=== PATIENT | male | born 1985 | race Two or more races ===

== ENCOUNTER 2025-01-22 07:57 | Outpatient (REF) | payer OTHER, SELFPAY ==
[2025-01-22 09:05] LABS: Anion Gap 11 (12-20); Blood Urea Nitrogen 13 mg/dL (9-16); Calcium 9.4 mg/dL (8.4-10.2); Carbon Dioxide 25 mmol/L (22-29); Chloride 109 mmol/L (96-108); Estimated Glomerular Filt Rate > 60; Glucose Fasting 104 mg/dL (60-99); Potassium 4.3 mmol/L (3.3-5.1); Sodium 141 mmol/L (135-145)
[2025-01-22 09:32] LABS: Erythrocyte Sedimentation Rate 2 MM/HR (0-15)
[2025-01-22 09:39] LABS: Folate 12.9 ng/mL (> or = 4.0); Vitamin B12 396 pg/mL (200-900)
== END 2025-01-22 07:58 | disposition home or self-care (01) ==
LOC: HO.LAB 07:57
PROVIDERS: PCP Internal Medicine; Visit Provider Psychiatry & Neurology Neurology
DX: G04 Encephalitis, myelitis and encephalomyelitis (principal)
CPT/HCPCS: 36415; 80048; 82607; 82746; 85652

== ENCOUNTER 2025-03-16 13:21 | Outpatient (AMB) | payer OTHER, SELFPAY ==
--- NOTE | 2025-03-16 13:30 | A.OFFVIS_ITS ---
Vital Signs 03/16/25 13:35 Height 5 ft 6 in Weight 198 lb 6.656 oz BMI 32.0 BP 111/66 Blood Pressure Location Lt brachial Position Sitting Pulse 76 Intake Visit Reasons: Fatty Liver Intake Note: Luc presents in the office as a new patient for fatty liver. CC: Here to check his liver - no symptoms! Allergies honey Allergy (Mild, Verified 03/16/25 13:36) Unknown HPI Comments Details: 39 y.o [place] gentleman, who is here to establish care for elevated LFTs. Patient reports this is a longstanding issue, and has had workup done in [place] as well, including a liver biopsy in 2019. He was diagnosed with fatty liver disease and prescribed vitamin-E. He is mainly interested in knowing if there has been any progression of liver disease since then. Does not report any abdominal pain, nausea, vomiting, pruritus, abdominal distention. Labs from portal 12/2024: ALT 100 AST 47 ALP 91 T. Bili 0.6 Prev liver biopsy: [facility] 2019 - Marked presence of fat droplets. Mild fibrosis of portal spaces. No significant inflammation. No viral cytopathology. Review of Systems Const All systems reviewed & are unremarkable except as noted in HPI and below Physical Exam Vital Signs: Last Vital Signs Pulse 76 03/16/25 13:35 BP 111/66 03/16/25 13:35 BMI result Body Mass Index 32.0 No apparent distress Nonicteric Abdomen soft, nondistended Alert and oriented x3, normal gait Assessment & Plan Assessment & Plan (1) Elevated LFTs: Code(s): R79.89 - Other specified abnormal findings of blood chemistry Category: Medical (2) Metabolic dysfunction-associated steatohepatitis (MASH): Code(s): K75.81 - Nonalcoholic steatohepatitis (MAE) Category: Medical Plan Reviewed with the patient that will complete workup to rule out other causes. In addition, will also get an elastography to noninvasively assess for underlying fibrosis. Plan: -labs as below -ultrasound elastography -patient counseled on control of metabolic factors -10% total body weight loss in the next 6 months Follow-up in 2 months to review results Orders: Orders Liver Panel Today R79.89 - Other specified abnormal findings of blood chemistry Alpha 1 Anti-trypsin Today R79.89 - Other specified abnormal findings of blood chemistry Alpha Fetoprotein Today R79.89 - Other specified abnormal findings of blood chemistry Ceruloplasmin Today R79.89 - Other specified abnormal findings of blood chemistry Hepatitis A IgG Today R79.89 - Other specified abnormal findings of blood chemistry Hepatitis B Surface Antigen Today R79.89 - Other specified abnormal findings of blood chemistry Hepatitis C Antibody Today R79.89 - Other specified abnormal findings of blood chemistry HIV Ab/Ag Today R79.89 - Other specified abnormal findings of blood chemistry Immunoglobulin A Today R79.89 - Other specified abnormal findings of blood chemistry Mitochondrial Antibody Today R79.89 - Other specified abnormal findings of blood chemistry Phosphatidylethanol, Blood Today R79.89 - Other specified abnormal findings of blood chemistry Smooth Muscle Antibody Today R79.89 - Other specified abnormal findings of blood chemistry Prothrombin Time INR Today R79.89 - Other specified abnormal findings of blood chemistry Transglutaminase IgA Today R79.89 - Other specified abnormal findings of blood chemistry KAREN Reflex Titer and Pattern Today R79.89 - Other specified abnormal findings of blood chemistry Ferritin Today R79.89 - Other specified abnormal findings of blood chemistry Complete Blood Count no Diff Today R79.89 - Other specified abnormal findings of blood chemistry Comprehensive Met. Panel Today R79.89 - Other specified abnormal findings of blood chemistry Hepatitis B Core Antibody Today R79.89 - Other specified abnormal findings of blood chemistry Hepatitis B Surface Antibody Today R79.89 - Other specified abnormal findings of blood chemistry Immunoglobulin G Today R79.89 - Other specified abnormal findings of blood chemistry IRON PROFILE Today R79.89 - Other specified abnormal findings of blood chemistry Liver Kidney Microsomal Ab Today R79.89 - Other specified abnormal findings of blood chemistry TSH reflex Free T4 Today R79.89 - Other specified abnormal findings of blood chemistry US abdomen comp w elastography Today R79.89 - Other specified abnormal findings of blood chemistry Coding Level of Care Code New Pt Level 4 (72345) Diagnoses Elevated LFTs R79. Metabolic dysfunction-associated steatohepatitis (MAS) K75.81
[2025-03-16 13:35] VITALS: BP 111/66; PULSE 76; BMI 32.0
--- OUTSIDE RECORDS SUMMARY | 2025-03-16 14:11 | XMS_ITS | Encounter Summary ---
Author Organization [facility] Address [address] [place] [address] Care Team Providers Care Retail Team Leader Name Role Phone Shakila Hi MD Primary Care Provider [phone]- [phone] Encounter Details Date Type Department Care Team (Late Contact Info) Description 09/14/2024 Nurse Triage Adult Medicine [address] [phone] Shakila Hi MD [address] [place] [id number] Social History Tobacco Use Types Packs/Day Years Used Date Smoking Tobacco: Never Sex and Gender Information Value Date Recorded Sex Assigned at Not on file Legal Sex Male 11:01 AM EDT Gender Identity Not on file Sexual Orientation Not on file documented as of this encounter Plan of Treatment Upcoming Encounters Date Type Department Care Team (Late st Contact Info) Description 03/22/2025 9:30 AM EDT Office Visit Adult Medicine [address] [phone] Jena Cherry PA [address] [place] [address] [phone] documented as of this encounter Visit Diagnoses Not on filedocumented in this encounter Care Teams Retail Team Leader Relationship Specialty Start Date End Date Shakila Hi MD [address] [place] [id number] PCP - General 08/01/23 documented as of this encounter
--- OUTSIDE RECORDS SUMMARY | 2025-03-16 14:11 | XMS_ITS | Clinical Summary ---
Author Organization [facility] Address [address] [place] [address] Care Team Providers Care Supervisor Wrapping Room Name Role Phone Unavailable Primary Care Provider Unavailabl e Source Comments PLEASE NOTE, if this patient is a minor, it may be UNLAWFUL to discuss sensitive information that is contained in these records (such as FAMILY PLANNING, MENTAL HEALTH or SUBSTANCE ABUSE) with the minor patient's parent or other person without the patient's specific authorization.[facility] Encounters Date Type Department Care Team Description 03/08/2025 4:00 PM EDT Office Visit [address] [phone] 02/05/2025 9:00 AM EDT Office Visit [address] [phone] Aydin Martinez DDS 01/01/2025 12:20 PM EDT Office Visit [address] [phone] Aydin Martinez DDS from Last 3 Months Social History Tobacco Use Types Packs/Day Years Used Date Smoking Tobacco: Never Assessed Sex and Gender Information Value Date Recorded Sex Assigned at Not on file Legal Sex Male 9:05 AM PDT Gender Identity Not on file Sexual Orientation Not on file Last Filed Vital Signs Vital Sign Reading Time Taken Comments Blood Pressure 126/79 02/05/2025 9:19 AM EDT Pulse 73 02/05/2025 9:19 AM EDT Temperature - - Respiratory Rate - - Oxygen Saturation - - Inhaled Oxygen Concentration - - Weight - - Height - - Body Mass Index - - Plan of Treatment Upcoming Encounters Date Type Department Care Team (Late st Contact Info) Description 04/14/2025 4:20 PM EDT Office Visit [address] [phone] Aydin Martinez, DDS [address] [place] [address] Health Maintenance Due Date Last Done Comments Anxiety Screening 1987 Hepatitis C Screening 1987 Tobacco Screening 1987 HIV Screening 2002 Imm-DTaP/Tdap/Td (1 - Tdap) 2006 Imm-Hepatitis B (1 of 3 - 19+ 3-dose series) [id number] ( - season) 2024 Alcohol and Drug Screen 09/08/2024 Depression Annual Screen 09/08/2024 Imm-Influenza (#1) 2025 Dental BW 03/10/2026 03/08/2025 Dental Examination 03/10/2026 03/08/2025 Dental Perio Charting 03/10/2026 03/08/2025 Dental Prophy 03/10/2026 03/08/2025 Diabetes Screening 10/20/2026 10/20/2023 Hypertension Screening (#1) 02/05/2028 Dental FMX/Pano 03/10/2030 03/08/2025 Procedures Procedure Name Priority Date/Time Associated Diagnosis Comments DENTAL CASE MANAGEMENT - MOTIVATIONAL INTV Routine 03/08/2025 4:00 PM EDT Caries of enamel (incipient) Caries PROPHYLAXIS - ADULT Routine 03/08/2025 4 :00 PM EDT Caries of enamel (incipient) Caries INTRAORAL - COMP SERIES OF RADIOGRAPHIC IMAGES Routine 03/08/2025 4:00 PM EDT Caries of enamel (incipient) Caries COMP ORAL EVALUATION - NEW/ESTABLISHED PATIENT Routine 03/08/2025 4:00 PM EDT Caries of enamel (incipient) Caries CARIES RISK ASSESSMENT & DOC FINDING HIGH RISK Routine 03/08/2025 4:00 PM EDT Caries of enamel (incipient) Caries NUTRITIONAL COUNSELING CONTROL OF DENTAL DISEASE Routine 03/08/2025 4:00 PM EDT Caries of enamel (incipient) Caries ORAL HYGIENE INSTRUCTIONS Routine 2024 4:00 PM EDT Caries of enamel (incipient) Caries ORAL CANCER SCREENING Routine 03/08/2025 4:00 PM EDT Caries of enamel (incipient) Caries CASE PRESENTATION SUBS DTL & EXTENSIVE TX PLN Routine 03/08/2025 4:00 PM EDT Caries of enamel (incipient) 5 MOD COMPOSITE - WISDOM (NON BILLABLE) Routine 03/08/2025 12:00 AM EDT 20 DO COMPOSITE - WISDOM (NON BILLABLE) Routine 03/08/2025 12:00 AM EDT 15 MO AMALGAM - WISDOM (NON BILLABLE) Routine 03/08/2025 12:00 AM EDT 18 MOL AMALGAM - WISDOM (NON BILLABLE) Routine 03/08/2025 12:00 AM EDT 12 CROWN - PORCELAIN FUSED PREDOMINANTLY BASE METAL Routine 03/08/2025 12:00 AM EDT 13 CROWN - PORCELAIN FUSED PREDOMINANTLY BASE METAL Routine 03/08/2025 12:00 AM EDT 14 CROWN - PORCELAIN FUSED PREDOMINANTLY BASE METAL Routine 03/08/2025 12:00 AM EDT 19 CROWN - PORCELAIN FUSED PREDOMINANTLY BASE METAL Routine 03/08/2025 12:00 AM EDT 18 ROOT CANAL - WISDOM (NO BILLABLE) Routine 03/08/2025 12:00 AM EDT 19 ROOT CANAL - WISDOM (NO BILLABLE) Routine 03/08/2025 12:00 AM EDT 14 ROOT CANAL - WISDOM (NO BILLABLE) Routine 03/08/2025 12:00 AM EDT 13 ROOT CANAL - WISDOM (NO BILLABLE) Routine 03/08/2025 12:00 AM EDT 12 ROOT CANAL - WISDOM (NO BILLABLE) Routine 03/08/2025 12:00 AM EDT 31 MO RESIN-BASED COMPOSITE - TWO SURFACES POSTERIOR Routine 02/05/2025 9:00 AM EDT Defective dental methodist INTRAORAL - PERIAPICAL FIRST RADIOGRAPHIC IMAGE Routine 01/01/2025 12:20 PM EDT Defective dental methodist BITEWING - SINGLE RADIOGRAPHIC IMAGE Routine 01/01/2025 12:20 PM EDT Defective dental methodist LIMITED ORAL EVALUATION - PROBLEM FOCUSED Routine 01/01/2025 12:20 PM EDT Defective dental methodist 2 O AMALGAM - WISDOM (NON BILLABLE) Routine 01/01/2025 12:00 AM EDT 3 MO COMPOSITE - WISDOM (NON BILLABLE) Routine 01/01/2025 12:00 AM EDT 4 ROOT CANAL - WISDOM (NO BILLABLE) Routine 01/01/2025 12:00 AM EDT 4 CROWN - PORCELAIN FUSED PREDOMINANTLY BASE METAL Routine 01/01/2025 12:00 AM EDT 29 CROWN - PORCELAIN FUSED PREDOMINANTLY BASE METAL Routine 01/01/2025 12:00 AM EDT 30 CROWN - PORCELAIN FUSED PREDOMINANTLY BASE METAL Routine 01/01/2025 12:00 AM EDT 29 ROOT CANAL - WISDOM (NO BILLABLE) Routine 01/01/2025 12:00 AM EDT 30 ROOT CANAL - WISDOM (NO BILLABLE) Routine 01/01/2025 12:00 AM EDT from Last 3 Months [facility] MEDICAID DENTAL [facility] [place] [address]
== END 2025-03-16 14:06 | disposition home or self-care (01) ==
LOC: HO.HGI 13:21
PROVIDERS: PCP Internal Medicine; Visit Provider Internal Medicine
DX: R79.89 Other specified abnormal findings of blood chemistry (principal); K75.81 Nonalcoholic steatohepatitis (NASH)
CPT/HCPCS: 99204

== ENCOUNTER 2025-03-16 14:16 | Outpatient (REF) | payer OTHER, SELFPAY ==
[2025-03-16 15:11] LABS: Hematocrit 42.1 % (42.0-52.0); Hemoglobin 14.6 g/dl (14.0-18.0); Mean Corpuscular HGB Conc 34.7 g/dl (31.0-36.0); Mean Corpuscular Hemoglobin 27.7 pg (27.0-33.0); Mean Corpuscular Volume 79.9 fL (80.0-98.0); NRBC Abs Auto 0.000 X10*3/uL (0.0-0.012); NRBC Pct Auto 0.0 /100WBC (0.0-0.2); Platelet Count 144 X10*3/uL (160-400); Red Blood Count 5.27 X10*6/uL (4.60-5.80); White Blood Count 5.1 X10*3/uL (4.8-10.8)
[2025-03-16 15:23] LABS: INTERNATIONAL NORM RATIO 1.0 (0.9-1.1); Prothrombin Time 11.7 SEC (10.9-12.4)
[2025-03-16 15:40] LABS: Alanine Aminotransferase 85 U/L (0-40); Albumin Level 4.9 g/dL (3.5-5.0); Alkaline Phosphatase 78 U/L (39-117); Anion Gap 11 (12-20); Aspartate Amino Transferase 42 U/L (5-37); Blood Urea Nitrogen 11 mg/dL (9-16); Calcium 9.6 mg/dL (8.4-10.2); Carbon Dioxide 25 mmol/L (22-29); Chloride 108 mmol/L (96-108); Estimated Glomerular Filt Rate > 60; Iron 87 mcg/dL (45-160); Percent Iron Saturation 25 % (15-50); Potassium 4.0 mmol/L (3.3-5.1); Sodium 140 mmol/L (135-145); Total Iron Binding Capacity 350 mcg/dL (228-428); Total Protein 7.1 g/dL (6.5-8.0); Unsaturated Iron Binding 263 ug/dL
[2025-03-16 15:54] LABS: Ferritin 49 ng/mL (20-250)
[2025-03-17 06:34] LABS: HBS Num1 0.05 mIU/mL (0-7.99); HBc Num1 0.05 S/CO (0.00-0.79); HBsAGNum1 0.33 S/CO (0.00-0.99); HIV Num 1 0.06 S/CO (0.00-0.99); Hepatitis B Surface Antigen Negative (Negative); ~HepC Num1 0.13 S/CO (0.00-0.79); ~Hepatitis B Surface Antibody NONREACTIVE (Nonreactive); ~Hepatitis C Antibody Nonreactive (Nonreactive)
[2025-03-18 08:12] LABS: ~Hepatitis A Antibody IgG 10.62 S/CO (0.00-0.99)
[2025-03-18 08:53] LABS: Immunoglobulin A 98 mg/dL (47-310); Immunoglobulin G 790 mg/dL (600-1640)
[2025-03-18 12:08] LABS: Anti Nuclear Antibody Screen NEGATIVE (NEGATIVE)
[2025-03-21 12:57] LABS: Phosphatidylethanol 16:0-18:1 NEGATIVE
[2025-03-21 12:58] LABS: Phosphatidylethanol 16:0-18:2 NEGATIVE
[2025-03-23 11:34] LABS: Liver Kidney Microsomal Ab <=20.0 U (<=20.0)
== END 2025-03-16 14:17 | disposition home or self-care (01) ==
LOC: HO.LAB 14:16
PROVIDERS: PCP Internal Medicine; Visit Provider Internal Medicine
DX: R79.89 Other specified abnormal findings of blood chemistry (principal); K75.81 Nonalcoholic steatohepatitis (NASH)
CPT/HCPCS: 36415; 80053; 80321; 82103; 82105; 82248; 82390; 82728; 82784; 83540; 84443; 85027; 85610; 86015; 86038; 86364; 86376; 86381; 86704; 86706; 86708; 86803; 87340; 87389; 99202

== ENCOUNTER 2025-04-29 12:37 | Outpatient (REF) | payer OTHER, SELFPAY ==
--- NOTE | ~2025-04-29 | US_ITS ---
EXAMINATION: US COMPLETE ABDOMEN WITH LIVER ELASTOGRAPHY CLINICAL INFORMATION: Elevated transaminases. COMPARISON: None available. TECHNIQUE: Real-time imaging of the abdominal viscera. Noninvasive ultrasound liver fibrosis assessment is performed using Chance ElastPQ point quantification shear wave elastography (pSWE) with a C5-2 MHz transducer. Multiple elastography samples are obtained. FINDINGS: PANCREAS: The visualized pancreatic head and visualized portions of the body are normal in appearance. The remainder of the pancreas is obscured from visualization by the overlying bowel gas. ABDOMINAL AORTA: No aortic aneurysm is seen. INFERIOR VENA CAVA: Visualized portions are normal. LIVER: Liver is diffusely echogenic. The right lobe measures 15 cm in length. The left lobe measures 10 cm in length. The main portal vein is patent with a normal direction of flow and a continuously forward venous waveform. Shear wave liver elastography median stiffness is 1.9 m/s (reference: normal median stiffness is 1.3 m/s or less). IQR/median stiffness to assess sampling precision is 0.05 (reference: good quality data set is IQR/median stiffness of 0.15 or less). GALLBLADDER: The gallbladder is physiologically distended without evidence of stones, sludge, polyps, wall thickening or pericholecystic fluid. COMMON BILE DUCT: Normal in caliber measuring 0.3 cm in diameter. RIGHT KIDNEY: No hydronephrosis. No renal calculi or focal parenchymal lesions. The kidney measures 12 cm in maximum dimension. LEFT KIDNEY: No hydronephrosis. No renal calculi or focal parenchymal lesions. The kidney measures 12 cm in maximum dimension. SPLEEN: Unremarkable. The spleen measures 13.9 cm in maximum dimension. FREE FLUID: None seen. US/US abdomen comp w elastography IMPRESSION: 1. Diffusely echogenic liver is consistent with fatty changes versus diffuse hepatocellular disease. 2. Liver elastography: Measurements are suggestive of compensated advanced chroniic liver disease but need further test for confirmation. Borderline splenomegaly. REFERENCE: Society of Radiologists in Ultrasound Liver Stiffness Thresholds (2020): LIVER STIFFNESS THRESHOLDS: *Liver Stiffness equal or less than 1.3 m/s: High probability of being normal. *Liver Stiffness less than 1.7 m/s: In the absence of other known clinical signs, rules out compensated advanced chronic liver disease. *Liver Stiffness 1.7-2.1 m/s: Suggestive of compensated advanced chronic liver disease but need further test for confirmation. *Liver Stiffness over 2.1 m/s: Rules in compensated advanced chronic liver disease. *Liver Stiffness over 2.4 m/s: Suggestive of clinically significant portal hypertension. QUALITY OF DATA SET: *IQR/Median value equal or less than 0.15 implies a quality data set. *IQR/Median value over 0.15 implies a poor quality data set. SIGNIFICANT CHANGE FROM PRIOR EXAM: Significant change if liver stiffness measurement is 10% or greater from prior exam. OTHER CONSIDERATIONS: The stage of liver fibrosis may be overestimated in the setting of acute hepatitis, liver inflammation, elevated liver function tests, hepatic vascular congestion, obstructive cholestasis, non-fasting state, and infiltrative diseases such as amyloidosis and lymphoma. In some patients with NAFLD, the liver stiffness thresholds for compensated advanced chronic liver disease may be lower. In causes other than viral hepatitis and NAFLD, liver stiffness thresholds are not well established. Electronically signed by: Franko Wadsworth MD 04/29/2025 01:21 PM EDT
--- OUTSIDE RECORDS SUMMARY | 2025-04-29 12:39 | XMS_ITS | Clinical Summary ---
Author Organization [facility] Address [address] [place] [address] Care Team Providers Care Software Developer Consultant Name Role Phone Unavailable Primary Care Provider Unavailabl e Source Comments PLEASE NOTE, if this patient is a minor, it may be UNLAWFUL to discuss sensitive information that is contained in these records (such as FAMILY PLANNING, MENTAL HEALTH or SUBSTANCE ABUSE) with the minor patient's parent or other person without the patient's specific authorization.[facility] Medications No known medications Active Problems No known active problems Encounters Date Type Department Care Team Description 04/23/2025 10:40 AM EDT Office Visit [address] [phone] Ashlee Nuñez DDS 04/14/2025 4:20 PM EDT Office Visit [address] [phone] Aydin Martinez DDS 03/08/2025 4:00 PM EDT Office Visit [address] [phone] Gopi Reese Shelley 02/05/2025 9:00 AM EDT Office Visit [address] [phone] Aydin Martinez DDS from Last 3 Months Social History Tobacco Use Types Packs/Day Years Used Date Smoking Tobacco: Never Assessed Sex and Gender Information Value Date Recorded Sex Assigned at Not on file Legal Sex Male 9:05 AM PDT Gender Identity Not on file Sexual Orientation Not on file Last Filed Vital Signs Vital Sign Reading Time Taken Comments Blood Pressure 150/88 04/23/2025 10:41 AM EDT Pulse 81 04/23/2025 10:41 AM EDT Temperature - - Respiratory Rate - - Oxygen Saturation - - Inhaled Oxygen Concentration - - Weight - - Height - - Body Mass Index - - Plan of Treatment Upcoming Encounters Date Type Department Care Team (Late st Contact Info) Description 05/27/2025 4:20 PM EDT Office Visit [facility] [address] [place] [phone] Aydin Martinez, DDS [address] [place] [address] 05/30/2025 4:20 PM EDT Office Visit [facility] [address] [place] [phone] Leslie Ulloa, DMD [address] [place] [address] Health Maintenance Due Date Last Done Comments Anxiety Screening 1987 Tobacco Screening 1987 HIV Screening 2002 Imm-DTaP/Tdap/Td (1 - Tdap) 2006 Imm-Hepatitis B (1 of 3 - 19 + 3-dose series) 2006 [id number] ( - season) 2024 Alcohol and Drug Screen 09/08/2024 Depression Annual Screen 09/08/2024 Imm-Influenza (#1) 2025 Dental BW 03/10/2026 03/08/2025 Dental Examination 03/10/2026 03/08/2025 Dental Perio Charting 03/10/2026 03/08/2025 Dental Prophy 03/10/2026 03/08/2025 Diabetes Screening 03/23/2026 03/23/2025, 0 03/23/2025, 03/23/2025, Additional history exists Hypertension Screening (#1) 04/23/2026 Dental FMX/Pano 03/10/2030 03/08/2025 Hepatitis C Screening Completed 03/23/2025 Procedures Procedure Name Priority Date/Time Associated Diagnosis Comments OFFICE VISIT OBSERVATION NO OTHER SRVC PERFORMED Routine 04/23/2025 10:40 AM EDT Encounter for dental examination 20 DO RESIN-BASED COMPOSITE - TWO SURFACES POSTERIOR Routine 04/14/2025 4:20 PM EDT Caries Defective dental amish DENTAL CASE MANAGEMENT - MOTIVATIONAL INTV Routine [...] Routine 02/05/2025 9:00 AM EDT Defective dental amish from Last 3 Months Insurance [place] MEDICAID DENTAL [facility] [place] [id number]
--- OUTSIDE RECORDS SUMMARY | 2025-04-29 12:39 | XMS_ITS | Encounter Summary ---
Author Organization [facility] Address [address] [place] [address] Care Team Providers Care Tool Dresser Name Role Phone Shakila Hi MD Primary Care Provider [phone]- [phone] Encounter Details Date Type Department Care Team (Late st Contact Info) Description 09/14/2024 Nurse Triage Adult Medicine [address] [phone] Shakila Hi MD [address] [place] [id number] Social History Tobacco Use Types Packs/Day Years Used Date Smoking Tobacco: Never Sex and Gender Information Value Date Recorded Sex Assigned at Not on file Legal Sex Male 11:01 AM EDT Gender Identity Not on file Sexual Orientation Not on file documented as of this encounter Plan of Treatment Upcoming Encounters Date Type Department Care Team (Late st Contact Info) Description 07/08/2025 7:45 AM EDT Office Visit Adult Medicine [address] [phone] Shakila Hi MD [address] [place] documented as of this encounter Visit Diagnoses Not on filedocumented in this encounter Care Teams Tool Dresser Relationship Specialty Start Date End Date Shakila Hi MD [address] [place], [place] [address] [address] PCP - General 08/01/23 documented as of this encounter
== END 2025-04-29 12:38 | disposition home or self-care (01) ==
LOC: HO.US 12:37
PROVIDERS: PCP Internal Medicine; Visit Provider Internal Medicine
DX: R79.89 Other specified abnormal findings of blood chemistry (principal)
CPT/HCPCS: 76700; 76981

== ENCOUNTER → 2025-04-29 12:39 | Outpatient (BNV) | payer OTHER, SELFPAY | PROVIDERS: PCP Internal Medicine; Visit Provider Radiology Diagnostic Radiology | DX: R74.01 Elevation of levels of liver transaminase levels (principal) | CPT/HCPCS: 76700 ==

== ENCOUNTER 2025-05-18 14:16 | Outpatient (AMB) | payer OTHER, SELFPAY ==
--- NOTE | 2025-05-18 14:42 | MHC.OFFVIS ---
Vital Signs 05/18/25 14:43 Height 5 ft 6 in Weight 198 lb 6.656 oz BMI 32.0 BP 111/71 Blood Pressure Location Lt brachial Position Sitting Pulse 83 Intake Visit Reasons: 2m Intake Note: Luc presents in the office as a 2 month follow up. CC: He states he is not having GI concerns today. Small Products Ii Assembler Required: No Allergies honey Allergy (Mild, Verified 05/18/25 14:44) Unknown HPI Comments Details: 39 y.o Belgian gentleman, who is here to establish care for elevated LFTs. Patient reports this is a longstanding issue, and has had workup done in [place] as well, including a liver biopsy in 2019. He was diagnosed with fatty liver disease and prescribed vitamin-E. He is mainly interested in knowing if there has been any progression of liver disease since then. Does not report any abdominal pain, nausea, vomiting, pruritus, abdominal distention. Labs from [place] 12/2024: ALT 100 AST 47 ALP 91 T. Bili 0.6 Prev liver biopsy: [facility] 2019 - Marked presence of fat droplets. Mild fibrosis of portal spaces. No significant inflammation. No viral cytopathology. 05/18/25: here for follow up. Reports no acute GI issues. Labs and US reviewed. Elastography in hanson zone with splenomegaly. Reviewed that indicates at least advanced fibrosis. Strong counseling done for modification of diet and lifestyle. Pt does not drink. BMI 32. Exercise 1-2 times a week. 1. Diffusely echogenic liver is consistent with fatty changes versus diffuse hepatocellular disease. 2. Liver elastography: Measurements are suggestive of compensated advanced chroniic liver disease but need further test for confirmation. 3. Borderline splenomegaly. Physical Exam Exam Exam: No apparent distress Nonicteric Abdomen soft, nondistended Alert and oriented x3, normal gait Vital Signs: Last Vital Signs Pulse 83 05/18/25 14:43 BP 111/71 05/18/25 14:43 BMI result Body Mass Index 32.0 Assessment & Plan Assessment & Plan (1) Obesity with serious comorbidity: Code(s): E66.9 - Obesity, unspecified Category: Medical (2) Elevated LFTs: Code(s): R79.89 - Other specified abnormal findings of blood chemistry Category: Medical (3) Metabolic dysfunction-associated steatohepatitis (MASH): Code(s): K75.81 - Nonalcoholic steatohepatitis (MAE) Category: Medical Plan Pt with obesity that has led to MASH and MAFLD with at least advanced fibrosis. Will advocate for GLP-1A to help with weight loss and obesity (BMI 32) related non cirrhotic MAE with moderate to advanced fibrosis to avoid progression to cirrhosis in this 39 y.o. Plan: - Labs as below - Start semaglutide 0.25 mg qweekly, increase to 0.5 mg after 4 weeks. Target dose will be at least 1.7mg, ideally 2.4 mg. - High protein diet - 150 mins of mod intensity exercise per week. - Avoid fatty foods, red meat in moderation, zero etOH Follow up 6 months Orders: Orders Hemoglobin A1c Today K75.81 - Nonalcoholic steatohepatitis (MAE), R79.89 - Other specified abnormal findings of blood chemistry Lipid Panel Today K75.81 - Nonalcoholic steatohepatitis (MAE), R79.89 - Other specified abnormal findings of blood chemistry Medications: New semaglutide 0.25 mg (0.05 mL) subcut QWEEK 0.2 mL 0RF fatty liver 4 weeks E66.9 - Obesity, unspecified Coding Level of Care Code Est Pt Level 4 (01453) Diagnoses Obesity with serious comorbidity E66.9 Elevated LFTs R79.89 Metabolic dysfunction-associated steatohepatitis (MASH) K75.81
[2025-05-18 14:43] VITALS: BP 111/71; PULSE 83; BMI 32.0
--- OUTSIDE RECORDS SUMMARY | 2025-05-18 17:34 | XMS_ITS | Encounter Summary ---
Author Organization [facility] Address [address] [place] [address] Care Team Providers Care Rubber Tile Floor Layer Name Role Phone Shakila Hi MD Primary Care Provider +1- [phone] Encounter Details Date Type Department Care Team (Late st Contact Info) Description 09/14/2024 Nurse Triage Adult Medicine [address] [phone] Shakila Hi MD [address] [place] [address] Social History Tobacco Use Types Packs/Day Years [...] 7:45 AM EDT Office Visit Adult Medicine [address] [phone] Shakila Hi MD [address] [place] documented as of this encounter Visit Diagnoses Not on filedocumented in this encounter Care Teams Rubber Tile Floor Layer Relationship Specialty Start Date End Date Shakila Hi MD [address] [place], [place] [address] [address] PCP - General 08/01/23 documented as of this encounter
--- OUTSIDE RECORDS SUMMARY | 2025-05-18 17:34 | XMS_ITS | Clinical Summary ---
Author Organization [facility] [address] [place] [address] [place] [address] Phone Care Team Providers Care Customer Account Coordinator Name Role Phone Shakila Hi MD Primary Care Provider Allergies Active Allergy Reactions Criticality Noted Date Comments Honey 10/09/2023 Medications cholecalciferol (Vitamin D3) 50 mcg (2,000 unit) capsule Take 1 capsule (2,000 Units total) by mouth 1 (one) time each day. 90 capsule 1 03/25/2025 Active Active Problems Problem Noted Date Diagnosed Date Obesity (BMI 30-39.9) 11/27/2023 Fatty liver 11/27/2023 Erectile dysfunction 11/27/2023 Abnormal liver ultrasound 11/27/2023 Depression 10/09/2023 Encounters Date Type Department Care Team Description 03/22/2025 9:30 AM EDT Office Visit Adult Medicine [address] [phone] Jena Cherry PA Adult general medical examination (Primary Dx); Muscle spasms of lower extremity; Snoring; Obesity (BMI 30-39.9); Chronic fatigue; Fatty liver; Vitamin D deficiency from Last 3 Months Medical History Medical History Date Comments History of encephalitis DX:Histo ry of encephalitis Social History Tobacco Use Types Packs/Day Years Used Date Smoking Tobacco: Never Tobacco Cessation:Counseling Given: Not Answered Sex and Gender Information Value Date Recorded Sex Assigned at Not on file Legal Sex Male 11:01 AM EDT Gender Identity Not on file Sexual Orientation Not on file Obstetrics History Last Filed Vital Signs Vital Sign Reading Time Taken Comments Blood Pressure 120/83 03/22/2025 9:09 AM EDT Pulse 88 03/22/2025 9:09 AM EDT Temperature 36.8 C (98.2 F) 03/22/2025 9:09 AM EDT Respiratory Rate 12 09/15/2024 10:19 AM EST Oxygen Saturation - - Inhaled Oxygen Concentration - - Weight 90.7 kg (200 lb) 03/22/2025 9:09 AM EDT Height 170.2 cm (5' 7 ) 03/22/2025 9:09 AM EDT Body Mass Index 31.32 03/22/2025 9:09 AM EDT Plan of Treatment Upcoming Encounters Date Type Department Care Team (Late st Contact Info) Description 07/08/2025 7:45 AM EDT Office Visit Adult Medicine [facility] [address] [place] [address] Shakila Hi MD [address] [place] [address] Health Maintenance Due Date Last Done Comments Social Influencers of Health Screening 03/29/2024 Depression Screening 09/08/2024 10/09/2023 COVID-19 Vaccine ( - 2023-2 5 season) 2025 Influenza Vaccine (#1) 2025 Cholesterol Screening (Lipid Panel) 03/23/2030 03/23/2025, 10/20/2023, 10/20/2023 Hepatitis C Screening Completed 03/23/2025 , 12/02/2023 DTaP,Tdap,and Td Vaccines Discontinued HIB Vaccines Aged Out No longer eligi ble based on patient's age to complete this topic HIV Screening Discontinued HPV Vaccines Aged Out No longer eligi ble based on patient's age to complete this topic Hepatitis A Vaccines Aged Out No long er eligible based on patient's age to complete this topic Hepatitis B Vaccines Discontinued IPV Vaccines Aged Out No longer eligi ble based on patient's age to complete this topic MMR Vaccines Aged Out No longer eligi ble based on patient's age to complete this topic Meningococcal ACWY Vaccine Aged Out N o longer eligible based on patient's age to complete this topic Meningococcal B Vaccine Aged Out No l onger eligible based on patient's age to complete this topic Pneumococcal Vaccine: Pediatrics (0 to 5 Years) and At-Risk Patients (6 to 49 Years) Discontinued RSV Immunization Patients Under 20 months Aged Out No longer eligible based on patient's age to complete this topic Varicella Vaccines Aged Out No longer eligible based on patient's age to complete this topic Procedures Procedure Name Priority Date/Time Associated Diagnosis Comments BILIRUBIN DUPLICATE PROCEDURE TO ORDER Routine 03/23/2025 7:59 AM EDT Elevated liver enzymes CBC WITH AUTO DIFFERENTIAL Routine 03/23/2025 7:59 AM EDT Adult general medical examination Muscle spasms of lower extremity Snoring HEPATITIS PANEL, ACUTE WITH REFLEX TO CONFIRMATION Routine 03/23/2025 7:59 AM EDT Elevated liver enzymes HEMOGLOBIN A1C Routine 03/23/2025 7:59 AM EDT Adult general medical examination Muscle spasms of lower extremity Snoring CBC AND DIFFERENTIAL Routine 03/23/2025 7:59 AM EDT Adult general medical examination Muscle spasms of lower extremity Snoring COMPREHENSIVE METABOLIC PANEL Routine 03/23/2025 7:59 AM EDT Adult general medical examination Muscle spasms of lower extremity Snoring MAGNESIUM Routine 03/23/2025 7:59 AM EDT Adult general medical examination Muscle spasms of lower extremity Snoring THYROID STIMULATING HORMONE WITH REFLEX TO FREE T4 AND FREE T3 Routine 03/23/2025 7:59 AM EDT Adult general medical examination Muscle spasms of lower extremity Snoring VITAMIN D 25 HYDROXY Routine 03/23/2025 7:59 AM EDT Adult general medical examination Muscle spasms of lower extremity Snoring VITAMIN B12 Routine 03/23/2025 7:59 AM EDT Adult general medical examination Muscle spasms of lower extremity Snoring LIPID PANEL WITH REFLEX TO DIRECT LDL Routine 03/23/2025 7:59 AM EDT Adult general medical examination Muscle spasms of lower extremity Snoring IRON AND TIBC Routine 03/23/2025 7:59 AM EDT Adult general medical examination Muscle spasms of lower extremity Snoring DEPRESSION SCREENING Routine 10/09/2023 from Last 3 Months or Most Recently Relevant to Health Maintenance Results * Bilirubin duplicate procedure to order (03/23/2025 7:59 AM EDT) Total Bilirubin 1.1 0.0 - 1.4 mg/dL LAB CHEMISTRY METHOD 03/23/2025 11:12 AM EDT [facility] Bilirubin, Direct 0.2 0.0 - 0.3 mg/dL LAB CHEMISTRY METHOD 03/23/2025 11:12 AM EDT [facility] Bilirubin, Indirect 0.9 0.0 - 1.1 mg/dL LAB CHEMISTRY METHOD 03/23/2025 11:12 AM EDT [facility] Blood Venous blood specimen / Unknown Venipuncture / Unknown 03/23/2025 7:59 AM EDT 03/23/2025 7:59 AM EDT us Shakila Hi MD LAB BLOOD ORDERABLES Final Result [facility] [address] [place] [address], [place] [phone] * Thyroid stimulating hormone with reflex to free t4 and free t3 (03/23/2025 7:59 AM EDT) TSH 1.76 0.40 - 4.00 mcIU/mL LAB CHEMISTRY METHOD 03/23/2025 12:37 PM EDT [facility] Blood Venous blood specimen / Unknown Venipuncture / Unknown 03/23/2025 7:59 AM EDT 03/23/2025 7:59 AM EDT Jena LOUIS LAB BLOOD ORDERABLES Fin al Result [facility] [address] [place] [address], [place] [phone] * (ABNORMAL) Lipid panel with reflex to direct LDL (03/23/2025 7:59 AM EDT) [facility] Cholesterol 140 0 - 200 mg/dL LAB CHEMISTRY METHOD 03/23/2025 11:07 AM EDT [facility] Triglycerides 128 0 - 150 mg/dL LAB CHEMISTRY METHOD 03/23/2025 11:07 AM EDT [facility] HDL 25(L) >=40 mg/dL LAB CHEMISTRY METHOD 03/23/2025 11:07 AM EDT [facility] LDL Calculated 89 0 - 100 mg/dL LAB CHEMISTRY METHOD 03/23/2025 11:07 AM EDT [facility] VLDL Cholesterol Pierre 25.6 mg/dL LAB CHEMISTRY METHOD 03/23/2025 11:07 AM EDT [facility] Non HDL Chol. (LDL+VLDL) 115 <145 mg/dL LAB CHEMISTRY METHOD 03/23/2025 11:07 AM EDT [facility] Chol/HDL Ratio 5.6(H) 0.0 - 4.4 LAB CHEMISTRY METHOD 03/23/2025 11:07 AM EDT [facility] Blood Venous blood specimen / Unknown Venipuncture / Unknown 03/23/2025 7:59 AM EDT 03/23/2025 7:59 AM EDT Jena LOUIS LAB BLOOD ORDERABLES Fin al Result [facility] [address] [place] [address], [place] [phone] * Hepatitis panel, acute with reflex to confirmation (03/23/2025 7:59 AM EDT) [facility] Hepatitis B Surface Ag Negative Negative LAB CHEMISTRY METHOD 03/23/2025 2:35 PM EDT [facility] Hepatitis A Antibody IgM Negative Negative LAB CHEMISTRY METHOD 03/23/2025 2:35 PM EDT [facility] Hep B Core IgM Negative Negative LAB CHEMISTRY METHOD 03/23/2025 2:35 PM EDT [facility] Hepatitis C Antibody Negative Negative LAB CHEMISTRY METHOD 03/23/2025 2:35 PM EDT [facility] Blood Venous blood specimen / Unknown Venipuncture / Unknown 03/23/2025 7:59 AM EDT 03/23/2025 7:59 AM EDT Shakila Hi MD LAB BLOOD ORDERABLES Final Result [facility] [address] [place] [address], [place] [phone] * CBC auto differential (03/23/2025 7:59 AM EDT) [facility] WBC 5.3 4.8 - 10.8 K/mcL LAB HEMETOLOGY METHOD 03/23/2025 11:08 AM EDT [facility] RBC 5.40 4.50 - 5.50 M/mcL LAB HEMETOLOGY METHOD 03/23/2025 11:08 AM EDT [facility] Hemoglobin 15.1 13.5 - 17.5 g/dL LAB HEMETOLOGY METHOD 03/23/2025 11:08 AM EDT [facility] Hematocrit 45.2 42.0 - 54.0 % LAB HEMETOLOGY METHOD 03/23/2025 11:08 AM EDT [facility] MCV 83.2 79.0 - 98.0 FL LAB HEMETOLOGY METHOD 03/23/2025 11:08 AM [facility] MCH 27.8 27.0 - 32.0 pcg LAB HEMETOLOGY METHOD 03/23/2025 11:08 AM [facility] MCHC 33.4 32.0 - 37.0 g/dL LAB HEMETOLOGY METHOD 03/23/2025 11:08 AM [facility] RDW 12.9 11.0 - 15.0 % LAB HEMETOLOGY METHOD 03/23/2025 11:08 AM [facility] Platelets 161 130 - 400 K/mcL LAB HEMETOLOGY METHOD 03/23/2025 11:08 AM [facility] MPV 10.1 7.0 - 11.0 FL LAB HEMETOLOGY METHOD 03/23/2025 11:08 AM [facility] NRBC 0.0 <1.0 % LAB HEMETOLOGY METHOD 03/23/2025 11:08 AM [facility] NRBC Absolute 0.00 <0.10 K/mcL LAB HEMETOLOGY METHOD 03/23/2025 11:08 AM [facility] Neutrophils Relative 55.1 % LAB HEMETOLOGY METHOD 03/23/2025 11:08 AM [facility] Lymphocytes Relative 34.5 % LAB HEMETOLOGY METHOD 03/23/2025 11:08 AM [facility] Monocytes Relative 6.6 % LAB HEMETOLOGY METHOD 03/23/2025 11:08 AM [facility] Eosinophils Relative 2.7 % LAB HEMETOLOGY METHOD 03/23/2025 11:08 AM [facility] Basophils Relative 0.9 % LAB HEMETOLOGY METHOD 03/23/2025 11:08 AM [facility] Immature Granulocytes Relative 0.2 % LAB HEMETOLOGY METHOD 03/23/2025 11:08 AM EDT [facility] Neutrophils Absolute 2.91 1.50 - 7.00 K/mcL LAB HEMETOLOGY METHOD 03/23/2025 11:08 AM EDT [facility] Lymphocytes Absolute 1.82 1.00 - 5.00 K/mcL LAB HEMETOLOGY METHOD 03/23/2025 11:08 AM EDT [facility] Monocytes Absolute 0.35 0.20 - 1.00 K/mcL LAB HEMETOLOGY METHOD 03/23/2025 11:08 AM EDT [facility] Eosinophils Absolute 0.14 0.00 - 0.50 K/[facility] LAB HEMETOLOGY METHOD 03/23/2025 11[facility] Basophils Absolute 0.05 0.00 - 0.20 K/mcL LAB HEMETOLOGY METHOD 03/23/2025 11:[facility] Immature Granulocytes Absolute 0.01 0.00 - 0.03 K/mcL LAB HEMETOLOGY METHOD 03/23/2025 11:08 AM [facility] Blood Venous blood specimen / Unknown Venipuncture / Unknown 03/23/2025 7:59 AM EDT 03/23/2025 7:59 AM EDT Jena LOUIS LAB BLOOD ORDERABLES Fin al Result [facility] [address] [place] [address], * Iron and TIBC (03/23/2025 7:59 AM EDT) Iron 113 50 - 160 mcg/dL LAB CHEMISTRY METHOD 03/23/2025 11:07 AM EDT [facility] TIBC 387 250 - 450 mcg/dL LAB CHEMISTRY METHOD 03/23/2025 11:07 AM EDT [facility] Iron Saturation 29 20 - 50 % LAB CHEMISTRY METHOD 03/23/2025 11:07 AM EDT [facility] Blood Venous blood specimen / Unknown Venipuncture / Unknown 03/23/2025 7:59 AM EDT 03/23/2025 7:59 AM EDT Jena Micaela LOUIS LAB BLOOD ORDERABLES Fin al Result Performing Organization Address [facility]/ZIP Co de Phone Number [facility] [address] [place] [address], [place] [phone] * (ABNORMAL) Vitamin D 25 hydroxy (03/23/2025 7:59 AM EDT) Vit D, 25-Hydroxy 20.8(L) 30.0 - 80.0 ng/mL LAB CHEMISTRY METHOD 03/23/2025 12:37 PM EDT [facility] Blood Venous blood specimen / Unknown Venipuncture / Unknown 03/23/2025 7:59 AM EDT 03/23/2025 7:59 AM EDT Jena Micaela LOUIS LAB BLOOD ORDERABLES Fin al Result Performing Organization Address [facility]/ZIP Co de Phone Number [facility] [address] [place] [address], [place] [phone] * Magnesium (03/23/2025 7:59 AM EDT) Magnesium 1.9 1.9 - 2.6 mg/dL LAB CHEMISTRY METHOD 03/23/2025 11:07 AM EDT [facility] Blood Venous blood specimen / Unknown Venipuncture / Unknown 03/23/2025 7:59 AM EDT 03/23/2025 7:59 AM EDT Jena Micaela LOUIS LAB BLOOD ORDERABLES Fin al Result Performing Organization Address [facility]/ZIP Co de Phone Number [facility] [address] [place] [address], [place] [phone] * Hemoglobin A1c (03/23/2025 7:59 AM EDT) [facility] Hemoglobin A1C 5.7 <6.5 % LAB CHEMISTRY METHOD 03/23/2025 12:38 PM EDT [facility] Mean Bld Glu Estim. 117 mg/dL LAB CHEMISTRY METHOD 03/23/2025 12:38 PM EDT [facility] Blood Venous blood specimen / Unknown Venipuncture / Unknown 03/23/2025 7:59 AM EDT 03/23/2025 7:59 AM EDT [facility] [place] [facility] LAB BLOOD ORDERABLES Fin al Result Performing Organization Address [facility] Co de Phone Number [facility] [address] [place] [address], [place] [phone] * Vitamin B12 (03/23/2025 7:59 AM EDT) [facility] Vitamin B-12 387 250 - 900 pcg/mL LAB CHEMISTRY METHOD 03/23/2025 11:30 AM EDT [facility] Blood Venous blood specimen / Unknown Venipuncture / Unknown 03/23/2025 7:59 AM EDT 03/23/2025 7:59 AM EDT Jena Micaela LOUIS LAB BLOOD ORDERABLES Fin al Result Performing Organization Address [facility]/ZIP Co de Phone Number [facility] [address] [place] [address], [place] [phone] * (ABNORMAL) Comprehensive metabolic panel (03/23/2025 7:59 AM EDT) [facility] Sodium 140 133 - 145 mmol/L LAB CHEMISTRY METHOD 03/23/2025 11:30 AM [facility] Potassium 4.3 3.5 - 5.5 mmol/L LAB CHEMISTRY METHOD 03/23/2025 11:30 AM [facility] Chloride 110 96 - 110 mmol/L LAB CHEMISTRY METHOD 03/23/2025 11:30 AM [facility] CO2 23 21 - 32 mmol/L LAB CHEMISTRY METHOD 03/23/2025 11:30 AM [facility] Anion Gap 7 3 - 11 LAB CHEMISTRY METHOD 03/23/2025 11:30 AM [facility] Glucose 102(H) 70 - 100 mg/dL LAB CHEMISTRY METHOD 03/23/2025 11:30 AM [facility] BUN 11 5 - 25 mg/dL LAB CHEMISTRY METHOD 03/23/2025 11:30 AM [facility] Creatinine 0.85 0.70 - 1.30 mg/dL LAB CHEMISTRY METHOD 03/23/2025 11:30 AM [facility] eGFR 115 >=60 mL/min/1. 73m2 LAB CHEMISTRY METHOD 03/23/2025 11:30 AM [facility] Comment:Calculation based on the Chronic Kidney Disease Epidemiology Collaboration (CKD-EPI) equation refit without adjustment for race. BUN/Creatinine Ratio 12.9 LAB CHEMISTRY METHOD 03/23/2025 11:30 AM [facility] Calcium 9.0 8.5 - 10.5 mg/dL LAB CHEMISTRY METHOD 03/23/2025 11:30 AM [facility] AST (SGOT) 33 10 - 42 unit/L LAB CHEMISTRY METHOD 03/23/2025 11:30 AM [facility] ALT (SGPT) 77(H) 10 - 60 unit/L LAB CHEMISTRY METHOD 03/23/2025 11:30 AM [facility] Alkaline Phosphatase 83 42 - 121 unit/L LAB CHEMISTRY METHOD 03/23/2025 11:30 AM EDT [facility] Total Protein 6.8 6.0 - 8.0 g/dL LAB CHEMISTRY METHOD 03/23/2025 11:30 AM EDT [facility] Albumin 4.1 3.2 - 5.0 g/dL LAB CHEMISTRY METHOD 03/23/2025 11:30 AM EDT [facility] Total Bilirubin 1.1 0.0 - 1.4 mg/dL LAB CHEMISTRY METHOD 03/23/2025 11:30 AM EDT [facility] Blood Venous blood specimen / Unknown Venipuncture / Unknown 03/23/2025 7:59 AM EDT 03/23/2025 7:59 AM EDT Jena LOUIS LAB BLOOD ORDERABLES Fin al Result [facility] [address] [place] [address], * Depression Screening (10/09/2023) Depression Screening abstracted Historical Provider HEALTH MAINTENANCE Final Result from Last 3 Months or Most Recently Relevant to Health Maintenance Insurance [facility] [place] [address] Care Teams Customer Account Coordinator Relationship Specialty Start Date End Date Shakila Hi MD [address] [place] [address] PCP - General 08/01/23
--- OUTSIDE RECORDS SUMMARY | 2025-05-18 17:34 | XMS_ITS | Clinical Summary ---
Author Organization [facility] Address [address] [place] [address] Care Team Providers Care Repeat Chief Name Role Phone Unavailable Primary Care Provider [...] Description 04/23/2025 10:40 AM EDT Office Visit [address] [place] [phone] Ashlee Nuñez DDS 04/14/2025 4:20 PM EDT Office Visit [address] [phone] Aydin Martinez DDS 03/08/2025 4:00 PM EDT Office Visit [address] [phone] Gopi Reese RDH from Last 3 Months Social History Tobacco [...] Description 05/27/2025 4:20 PM EDT Office Visit [facility] [address] [place] [address] Aydin Martinez, DDS [address] [place] [address] 05/30/2025 4:20 PM EDT Office Visit [facility] [address] [place] [phone] Leslie Ulloa, DMD [address] [place] [address] Health Maintenance Due Date Last Done Comments Anxiety Screening 1987 Tobacco Screening 1987 HIV Screening 2002 Imm-DTaP/Tdap/Td (1 - Tdap) 2006 Imm-Hepatitis B (1 of 3 - 19 + 3-dose series) 2006 Alcohol and Drug Screen 09/08/2024 Depression Annual Screen 09/08/2024 [id number] ( season) 2025 Imm-Influenza (#1) 2025 Dental BW 03/10/2026 03/08/2025 [...] 04/14/2025 4:20 PM EDT [facility]fect[facility] dental adventism DENTAL CASE MANAGEMENT - MOTIVATIONAL INTV Routine [...] (NO BILLABLE) Routine 03/08/2025 12:00 AM EDT from Last 3 Months [facility] MEDICAID DENTAL [facility] [place] [address]
--- OUTSIDE RECORDS SUMMARY | 2025-05-18 17:34 | XMS_ITS | Encounter Summary ---
Author Organization [facility] Address [address] [place] [address] Care Team Providers Care Floor Nurse Name Role Phone Shakila Hi MD Primary Care Provider [phone] Encounter Details Date Type Department Care Team (Late Contact Info) Description 10/07/2024 Lab Requisition [facility] Lab [address] [facility] [place] [phone] Prabhu Stearns, HERIBERTO [address] [facility] [address] [place] [phone] Testicular hypofunction Social History Tobacco Use Types Packs/Day Years Used Date Smoking Tobacco: Never Sex and Gender Information Value Date Recorded Sex Assigned at Not on file Legal Sex Male 11:01 AM EDT Gender Identity Not on file Sexual Orientation Not on file documented as of this encounter Plan of Treatment Upcoming Encounters Date Type Department Care Team (Late Contact Info) Description 07/08/2025 7:45 AM EDT Office Visit Adult Medicine [address] [phone] Shakila Hi MD [address] [place] [address] documented as of this encounter Procedures Procedure Name Priority Date/Time Associated Diagnosis Comments PROLACTIN Routine 10/07/2024 8:01 AM EST Testicular hypofunction COMPLETE BLOOD COUNT Routine 10/07/2024 8:01 AM EST Testicular hypofunction LUTEINIZING HORMONE Routine 10/07/2024 8 :01 AM EST Testicular hypofunction FOLLICLE STIMULATING HORMONE Routine 10/07/2024 8:01 AM EST Testicular hypofunction documented in this encounter Results * (ABNORMAL) Complete blood count (10/07/2024 8:01 AM EST) [facility] WBC 5.0 4.8 - 10.8 K/mcL LAB HEMETOLOGY METHOD 10/07/2024 1:53 PM [facility] RBC 5.50 4.50 - 5.50 M/mcL LAB HEMETOLOGY METHOD 10/07/2024 1:53 PM [facility] Hemoglobin 14.9 13.5 - 17.5 g/dL LAB HEMETOLOGY METHOD 10/07/2024 1:53 PM [facility] Hematocrit 46.1 42.0 - 54.0 % LAB HEMETOLOGY METHOD 10/07/2024 1:53 PM [facility] MCV 83.4 79.0 - 98.0 FL LAB HEMETOLOGY METHOD 10/07/2024 1:53 PM [facility] MCH 26.9(L) 27.0 - 32.0 pcg LAB HEMETOLOGY METHOD 10/07/2024 1:53 PM [facility] MCHC 32.3 32.0 - 37.0 g/dL LAB HEMETOLOGY METHOD 10/07/2024 1:53 PM [facility] RDW 13.0 11.0 - 15.0 % LAB HEMETOLOGY METHOD 10/07/2024 1:53 PM [facility] Platelets 163 130 - 400 K/mcL LAB HEMETOLOGY METHOD 10/07/2024 1:53 PM [facility] MPV 10.3 7.0 - 11.0 FL LAB HEMETOLOGY METHOD 10/07/2024 1:53 PM EST [facility] NRBC 0.0 <1.0 % LAB HEMETOLOGY METHOD 10/07/2024 1:53 PM EST [facility] NRBC Absolute 0.00 <0.10 K/mcL LAB HEMETOLOGY METHOD 10/07/2024 1:53 PM EST [facility] Blood Venous blood specimen / Unknown 10/07/2024 8:01 AM EST 10/07/2024 12:36 PM EST us Prabhu LOUIS LAB BLOOD ORDERABLES Final Res ult [facility] [address] [place] [address], [place] [phone] * Luteinizing hormone (10/07/2024 8:01 AM EST) Luteinizing Hormone 4.1 1.2 - 10.6 mIU/mL LAB CHEMISTRY METHOD 10/07/2024 2:16 PM EST [facility] Blood Venous blood specimen / Unknown 10/07/2024 8:01 AM EST 10/07/2024 12:36 PM EST us Prabhu LOUIS LAB BLOOD ORDERABLES Final Res ult [facility] [address] [place] [address], [place] [phone] * Follicle stimulating hormone (10/07/2024 8:01 AM EST) Follicle Stimulating Hormone 6.5 0.7 - 10.8 mIU/mL LAB CHEMISTRY METHOD 10/07/2024 2:39 PM EST [facility] Blood Venous blood specimen / Unknown 10/07/2024 8:01 AM EST 10/07/2024 12:36 PM EST us Prabhu LOUIS LAB BLOOD ORDERABLES Final Res ult [facility] [address] [place] [address], [place] [phone] * Prolactin (10/07/2024 8:01 AM EST) Prolactin 8.90 2.50 - 17.40 ng/mL LAB CHEMISTRY METHOD 10/07/2024 2:16 PM EST [facility] Blood Venous blood specimen / Unknown 10/07/2024 8:01 AM EST 10/07/2024 12:36 PM EST us Prabhu LOUIS LAB BLOOD ORDERABLES Final Res ult Performing Organization Address [facility] Co de Phone Number [facility] [address] [place] [address], [place] [phone] documented in this encounter Visit Diagnoses Diagnosis Testicular hypofunction Other testicular hypofunction documented in this encounter Care Teams Floor Nurse Relationship Specialty Start Date End Date Shakila Hi MD [address] [place] [address] PCP - General 08/01/23 documented as of this encounter
== END 2025-05-18 15:32 | disposition home or self-care (01) ==
PROVIDERS: PCP Internal Medicine; Visit Provider Internal Medicine
DX: E66.9 Obesity, unspecified (principal); R79.89 Other specified abnormal findings of blood chemistry; K75.81 Nonalcoholic steatohepatitis (NASH)
CPT/HCPCS: 99214

== ENCOUNTER 2025-05-18 14:16 | Outpatient (REF) | payer OTHER, SELFPAY ==
[2025-05-18 17:22] LABS: Hemoglobin A1C 153.0856 umol/L; Total Hemoglobin (HGBA1C) 3878.5666 umol/L
[2025-05-18 17:46] LABS: Cholesterol 186 mg/dL (<200); HDL Cholesterol 28 mg/dL (>40); Triglycerides 193 mg/dL (<150)
== END 2025-05-18 14:17 | disposition home or self-care (01) ==
LOC: HO.LAB 14:16
PROVIDERS: PCP Internal Medicine; Visit Provider Internal Medicine
DX: R79.89 Other specified abnormal findings of blood chemistry (principal); K75.81 Nonalcoholic steatohepatitis (NASH); E66.9 Obesity, unspecified; Z68.32 Body mass index [BMI] 32.0-32.9, adult
CPT/HCPCS: 36415; 80061; 83036; 99212